=== PATIENT | female | born 1980 | race African-American/Black ===

== ENCOUNTER 2024-01-02 02:59 | Emergency (ER) | payer OTHER, MEDICAID ==
[2024-01-02 03:43] LABS: Bilirubin Neg (Negative); Blood, Urine 25 (Negative); Clarity Clear (Clear); Glucose, Urine (Dipstick) Normal (Negative); Ketone, Urine Negative (Negative); Leukocyte 100 (Negative); Nitrite Positive (Negative); Protein, Urine (Dipstick) 30 mg/dl (Neg-Trace); Specific Gravity, Urine 1.015 (1.005-1.030); Urobilinogen Normal mg/dL (Less than 2)
[2024-01-02 03:46] LABS: Pregnancy Test - Urine (BHCG) Negative (Negative)
[2024-01-02] MEDS ORDERED: Ketorolac Tromethamine 30 MG (1 mL) VIAL ONE (03:46)
[2024-01-02 03:47] LABS: Pregu Control Background? CLEAR/WHITE (CLR/WHITE); Pregu Control Bar Appear? YES (CONTROL BAR); Specific Gravity 1.015 (1.002-1.036)
[2024-01-02] MEDS ORDERED: Metoprolol Tartrate 25 MG TAB ONE (03:47)
[2024-01-02] MEDS ORDERED: diphenhydrAMINE 50 MG/ML VIAL ONE (03:47)
[2024-01-02] MEDS ORDERED: Metoclopramide HCl 10 MG (2 mL) VIAL ONE (03:47)
[2024-01-02] MEDS ORDERED: Amlodipine 5 MG TAB ONE (03:47)
[2024-01-02 03:50] LABS: Bacteria/HPF 3+ HPF (None Seen); CAUTI Indications for Culture Pelvic or flank pain; RBC/HPF 0-3 HPF (0-3); Urine Culture Reflex Yes Yes
[2024-01-02 03:55] LABS: #Basophils 0.03 10x3/uL (0.0-0.2); #Eosinophils 0.22 10x3/uL (0.0-0.5); #Monocytes 0.55 10x3/uL (0.0-1.1); #Neutrophils 5.74 10x3/uL (1.5-8.4); %Basophils 0.3 % (0.0-2.0); %Eosinophils 2.2 % (0.0-6.0); %Lymphocytes 34.3 % (18.0-47.0); %Monocytes 5.5 % (0.0-10.0); %Neutrophils 57.5 % (40.0-75.0); Hematocrit 35.7 % (34.9-44.5); Hemoglobin 11.4 g/dL (12.0-15.5); Mean Corpuscular HGB CONC 31.9 g/dL (32.0-36.0); Mean Corpuscular Hemoglobin 26.6 pg (27.0-33.0); Mean Corpuscular Volume 83.4 fL (81.6-98.3); Mean Platelet Volume 10.3 fL (7.4-10.4); Platelet Count 260 10x3/uL (150-450); Red Blood Cell (RBC) Count 4.28 10x6/uL (3.90-5.03)
[2024-01-02 03:59] LABS: Amphetamine Not Detected (NotDetected); Barbiturates Screen Not Detected (NotDetected); Benzodiazepine Screen Detected (NotDetected); Cocaine Metabolite Screen Not Detected (NotDetected); Methadone Not Detected (NotDetected); Methamphetamine Not Detected (NotDetected); Opiate Screen Not Detected (NotDetected); Oxycodone Screen Not Detected (NotDetected); Phencyclidine (PCP) Not Detected (NotDetected); THC/Cannabinoid Screen Not Detected (NotDetected); Tricyclic Screen Detected (NotDetected)
[2024-01-02 04:06] LABS: Acetaminophen Less than 10 mcg/mL (Less than 10); Alcohol Less than 10.0 mg/dL (Less than 10); Salicylate Less than 8.0 mg/dL (Less than 8.0)
[2024-01-02 04:07] LABS: ALT (SGPT) 57 U/L (8-55); AST (SGOT) 30 U/L (5-34); Albumin 4.1 g/dL (3.5-5.0); Alkaline Phosphatase 100 U/L (40-110); Anion Gap 18 mmol/L (10-20); BUN (Urea Nitrogen) 12 mg/dL (7.0-18.7); Bilirubin, Total 0.2 mg/dL (0.2-1.2); Calc. Creatinine Clearance 0 mL/min (70-130); Calcium 9.8 mg/dL (7.8-10.44); Carbon Dioxide 18 mmol/L (22-29); Chloride 107 mmol/L (98-107); Estimated GFR 72; Globulin 3.6 g/dL (2.4-3.5); Glucose 145 mg/dL (70-105); Potassium 3.6 mmol/L (3.5-5.1); Protein, Total 7.7 g/dL (6.0-8.3); Sodium 139 mmol/L (136-145)
[2024-01-02 04:10] LABS: Troponin I Less than 0.010 ng/mL (< 0.028)
== END 2024-01-02 07:49 ==
LOC: CSHERS 02:59
DX: N39.0 Urinary tract infection, site not specified (principal); R45.851 Suicidal ideations; R51.9 Headache, unspecified; I10 Essential (primary) hypertension
CPT/HCPCS: 70450; 75809; 80053; 80306; 80307; 81001; 81025; 84484; 85025; 87077; 87086; 87186; 93005; 96374; 96375; 99285; J1200; J1885; J2765; 36415